=== PATIENT | female | born 1965 | race Caucasian/White ===

== ENCOUNTER 2018-09-25 22:34 | Emergency (ER) | payer SELFPAY ==
[~2018-09-25] VITALS: Ht 160 cm; Wt 47.6 kg
[2018-09-25] MEDS ORDERED: TAMOXIFEN CITRA10 MG ORAL (22:40)
[2018-09-25 22:47] VITALS: BP 148/88
[2018-09-25 23:50] VITALS: BP 0/0
--- NOTE | 2018-09-26 21:56 | Emergency Room Report ---
History of Present Illness General Chief Complaint: Lower Extremity Injury Source: Patient Present Illness Allergies: Coded Allergies: No Known Allergies (Unverified , 09/25/18) Patient History Last Menstrual Period: 2015 Now: No Nursing Documentation-PMH Hx Hypertension: Yes Hx Cancer: Yes - breast ca Physical Exam Vital Signs Date Time Temp Pulse Resp B/P (MAP) Pulse Ox O2 Delivery O2 Flow Rate FiO2 09/25/18 22:36 98.1 88 18 142/82 96 Room Air Medical Decision Making Diagnostic Impression: Primary Impression: Injury of lower extremity Qualified Codes: S89.90XA - Unspecified injury of unspecified lower leg, initial encounter ER Course Patient told nurse that she did not want to wait for evaluation. Nurse stated to patient that if she leaves it will AGAINST MEDICAL ADVICE. Understands the risks of leaving. Patient has competency to make her own decisions. Signed AMA form. Last Vital Signs Date Time Temp Pulse Resp B/P (MAP) Pulse Ox O2 Delivery O2 Flow Rate FiO2 09/25/18 23:50 0/0 09/25/18 22:47 98.5 95 18 97 Room Air Status: improved Disposition: AGAINST MEDICAL ADVICE Condition: Unknown Referrals: NOT CHOSEN IPA/,REFERRING (PCP) Abilio Piper MD Sep 26, 2018 21:56
== END 2018-09-26 | disposition left against medical advice (07) ==
LOC: EDBD 22:34 → EMR 23:18
DX: S89.91XA Unspecified injury of right lower leg, initial encounter (principal); W19.XXXA Unspecified fall, initial encounter; Y92.89 Other specified places as the place of occurrence of the external cause; I10 Essential (primary) hypertension; Z85.3 Personal history of malignant neoplasm of breast
CPT/HCPCS: 99281